=== PATIENT | male | born 1945 | race Caucasian/White ===

== ENCOUNTER 2017-10-01 14:09 | Observation (INO) | payer OTHER, BC, MEDICARE ==
--- NOTE | 2017-10-01 14:41 | ED PDOC ---
HPI: Chest Pain Time Seen by Provider: 10/01/17 14:24 Chief Complaint (Nursing): Trauma History Per: Patient History/Exam Limitations: no limitations Onset/Duration Of Symptoms: Hrs (2), Sudden Onset Current Symptoms Are (Timing): Still Present Severity: Mild Front/Back of Body, Lg (Color): 1 - sharp pain worse with deep breath and palpation Quality: Sharp Associated Symptoms: denies: Nausea, Dyspnea, Diaphoresis, Syncope Modifying Factors: None Exacerbating Factors: Movement, Deep Breathing Alleviating Factors: None Additional History Per: Patient Additional Complaint(s): pt. into ER via EMS c/o lt. sided chest pain and lt. arm s/p falling off a 5 ft ladder. states he fell onto a chair. denies any LOC. no neck pain no sob no n/t/ w. distant cabg h/o Past Medical History Reviewed: Historical Data, Nursing Documentation, Vital Signs Vital Signs: Last Vital Signs Temp 97.8 F 10/01/17 14:15 Pulse 89 10/01/17 14:15 Resp 20 10/01/17 14:15 BP 162/104 H 10/01/17 14:15 Pulse Ox 96 10/01/17 14:15 - Family History Family History: States: Unknown Family Hx - Living Arrangements Living Arrangements: With Family - Social History Current smoker - smoking cessation education provided: No - Allergies Allergies/Adverse Reactions: Allergies Allergy/AdvReac Type Severity Reaction Status Date / Time No Known Allergies Allergy Verified 10/01/17 14:15 NEREYDA Risk Score for UA/NSTEMI - NEREYDA Risk Score Age > 64: YES Known CAD (Stenosis greater than 50%): YES Aspirin use in past 7 days: YES Severe Angina: NO EKG ST changes greater than 0.5mm: NO Positive Cardiac Marker: NO NEREYDA Score: 3 Risk %: 13% Review of Systems ROS Statement: Except As Marked, All Systems Reviewed And Found Negative Constitutional: Negative for: Fever, Chills Cardiovascular: Positive for: Chest Pain. Negative for: Palpitations Respiratory: Negative for: Cough, Shortness of Breath Gastrointestinal: Negative for: Nausea, Vomiting, Abdominal Pain Musculoskeletal: Negative for: Neck Pain Neurological: Negative for: Weakness, Numbness Physical Exam - Reviewed Nursing Documentation Reviewed: Yes Vital Signs Reviewed: Yes - Physical Exam Head Exam: Positive for: NORMAL INSPECTION Eye Exam: Positive for: Normal appearance, EOMI, PERRL ENT: Positive for: Pharynx Is (clear,mmm). Negative for: Pharyngeal Erythema, Tonsillar Exudate, Tonsillar Swelling Neck: Positive for: Normal, Painless ROM, Supple. Negative for: Decreased ROM, Limited ROM, Trachea Midline, Pain On Movement Of Neck (no midline tenderness) Cardiovascular/Chest: Positive for: Regular Rate, Rhythm. Negative for: Chest Non Tender (left anterior tenderness completely reporduces the complaints), Edema, Gallop, Murmur, Bradycardia, Tachycardia Respiratory: Positive for: Normal Breath Sounds. Negative for: Decreased Breath Sounds, Accessory Muscle Use, Crackles, Rales, Rhonchi, Stridor, Wheezing , Respiratory Distress Pulses-Radial (L): 2+ Pulses-Radial (R): 2+ Gastrointestinal/Abdominal: Positive for: Normal Exam, Bowel Sounds, Soft. Negative for: Tenderness Back: Positive for: Normal Inspection. Negative for: L CVA Tenderness, R CVA Tenderness, Vertebral Tenderness Extremity: Positive for: Normal ROM. Negative for: Tenderness, Pedal Edema, Calf Tenderness, Deformity, Swelling Neurologic/Psych: Positive for: Alert, senior executive assistant II-XII, Oriented, Mood/Affect (calm) . Negative for: Motor/Sensory Deficits, Facial Droop - ECG ECG: Positive for: Interpreted By Me ECG Rhythm: Positive for: Normal QRS, Normal ST Segment, Sinus Rhythm (88) Interpretation Of Abn EKG: no prev ecg signs of lvh, reviewed with Dr salcido no evidence of ischemia O2 Sat by Pulse Oximetry: 96 Pulse Ox Interpretation: Normal Disposition - Disposition
[2017-10-01 15:10] LABS: ALB/GLOB RATIO 1.1 (1.0-2.1); ALBUMIN 3.5 g/dL (3.5-5.0); ALT/SGPT 30 U/L (21-72); AST/SGOT 22 U/L (17-59); BLOOD UREA NITROGEN 25 mg/dl (9-20); CALCIUM 8.9 mg/dL (8.4-10.2); GFR AFRICAN-AMERICAN > 60; GFR NON-AFRICAN AMERICAN 60; LIPASE 94 U/L (23-300)
[2017-10-01 15:12] LABS: PARTIAL THROMBOPLASTIN TIME 29.1 Seconds (25.6-37.1); PROTHROMBIN TIME 10.8 Seconds (9.8-13.1)
--- NOTE | 2017-10-01 15:12 | RAD ---
PROCEDURE: CHEST RADIOGRAPH, 1 VIEW HISTORY: Chest pain COMPARISON: None available. FINDINGS: LUNGS: The lungs are well inflated and clear. PLEURA: No pneumothorax or pleural fluid seen. CARDIOVASCULAR: There is mild cardiomegaly. Status post CABG. OSSEOUS STRUCTURES: No significant abnormalities. VISUALIZED UPPER ABDOMEN: Normal. OTHER FINDINGS: None. IMPRESSION: No active pulmonary disease.
[2017-10-01 15:18] LABS: BASO # 0.1 K/uL (0.0-0.2); BASO % 1.1 % (0.0-2.0); EOS # 0.4 K/uL (0.0-0.7); EOS % 5.6 % (0.0-4.0); HEMOGLOBIN 14.7 g/dL (12.0-18.0); LYMPH # 2.3 K/uL (1.0-4.3); LYMPH % 36.3 % (20.0-40.0); MEAN CELL VOLUME 86.2 fl (80.0-94.0); MEAN CORPUSCULAR HEMOGLOBIN 28.7 pg (27.0-31.0); MEAN CORPUSCULAR HGB CONC 33.3 g/dL (33.0-37.0); MEAN PLATELET VOLUME 10.6 fl (7.2-11.7); MONO # 0.3 K/uL (0.0-0.8); MONO % 5.4 % (0.0-10.0); NEUT # 3.3 K/uL (1.8-7.0); NEUT % 51.6 % (50.0-75.0); NRBC % 0.1 % (0.0-0.0); RBC 5.12 Mil/uL (4.40-5.90); RED CELL DISTRIBUTION WIDTH 14.1 % (11.5-14.5); WHITE BLOOD COUNT 6.5 K/uL (4.8-10.8)
[2017-10-01 15:22] LABS: B-TYPE NATRIURETIC PEPTIDE 112 pg/ml (0-900)
[2017-10-01] MEDS ORDERED: Sodium Chloride 0.9% 100 ML ONE (16:33)
[2017-10-01] MEDS ORDERED: Iohexol 300 100 ML IJ ONE (16:33)
--- NOTE | 2017-10-01 17:02 | ED PDOC ---
- Laboratory Results Result Diagrams: 10/01/17 14:55 10/01/17 14:55 Interpretation Of Abn Labs: 25 bun, 243 sugar - ECG ECG: Positive for: Interpreted By Me, Viewed By Me ECG Rhythm: Positive for: Nonspecific Changes O2 Sat by Pulse Oximetry: 96 Pulse Ox Interpretation: Normal - CT Scan/US ct Other Rad Studies (CT/US): Read By Radiologist Other Rad Interpretation: no acute - Progress ED Course And Treament: 1700: Took over care. FU CT chest for trauma. No head or neck injury. 1856: Pt. still with pain. Will consider admit as he has multiple risk factors and abnormal EKG. Spoke with Dr. Saldivar who will admit tele obs. No asa as pt. took plavix in the morning. Disposition - Clinical Impression Clinical Impression: Trauma of chest, Chest pain, Dehydration, Hyperglycemia - POA Present On Arrival: Falls Or Trauma - Disposition Disposition: Hospitalized as Observation Patient Disposition Time: 18:58 Condition: FAIR
--- NOTE | 2017-10-01 17:41 | CT ---
PROCEDURE: CT Chest with contrast HISTORY: cp with trauma COMPARISON: None. TECHNIQUE: Contiguous axial images were obtained through the chest with intravenous contrast enhancement. Sagittal and coronal reconstructions were performed. IV contrast: 90 cc Omnipaque 300 Radiation dose (DLP): 617.03 mGy-cm. This CT exam was performed using one or more of the following dose reduction techniques: Automated exposure control, adjustment of the mA and/or kV according to patient size, and/or use of iterative reconstruction technique. FINDINGS: LUNGS: Clear lungs. Visualized airway clear. MEDIASTINUM: Unremarkable thoracic aorta. No aneurysm or dissection. Normal sized heart. Main pulmonary artery unremarkable. No vascular congestion. No lymphadenopathy. PLEURA: No pleural fluid. No pneumothorax. BONES: No fracture. No destructive lesion. UPPER ABDOMEN: Significant only for mid left renal cortical cyst, 2.6 cm. OTHER FINDINGS: None. IMPRESSION: No evidence of hemothorax or pneumothorax. No evidence of rib fracture. Incidental left renal cyst.
[2017-10-01] MEDS ORDERED: Morphine 4 MG/ML VIAL IV ONE (17:59)
[2017-10-01] MEDS ORDERED: Morphine 4 MG/ML VIAL ONE (19:23)
[2017-10-01] MEDS ORDERED: Nitroglycerin 2% Ointment Foilpak UD TOP STA (22:51)
[2017-10-02] MEDS ORDERED: Morphine 4 MG/ML VIAL IVP STA (02:14)
[2017-10-02] MEDS ORDERED: Labetalol 5 mg/ml Inj 20ML IVP STA (02:14)
[2017-10-02 05:38] LABS: BASO % 0.3 % (0.0-2.0); EOS # 0.4 K/uL (0.0-0.7); EOS % 8.2 % (0.0-4.0); HEMOGLOBIN 14.5 g/dL (12.0-18.0); LYMPH # 2.3 K/uL (1.0-4.3); LYMPH % 45.5 % (20.0-40.0); MEAN CELL VOLUME 86.6 fl (80.0-94.0); MEAN CORPUSCULAR HEMOGLOBIN 28.5 pg (27.0-31.0); MEAN PLATELET VOLUME 10.4 fl (7.2-11.7); MONO # 0.3 K/uL (0.0-0.8); MONO % 6.6 % (0.0-10.0); NEUT % 39.4 % (50.0-75.0); NRBC % 0.1 % (0.0-0.0); RBC 5.09 Mil/uL (4.40-5.90); RED CELL DISTRIBUTION WIDTH 14.3 % (11.5-14.5); WHITE BLOOD COUNT 5.1 K/uL (4.8-10.8)
[2017-10-02 05:52] LABS: ALBUMIN 3.2 g/dL (3.5-5.0); ALT/SGPT 31 U/L (21-72); AST/SGOT 18 U/L (17-59); BLOOD UREA NITROGEN 17 mg/dl (9-20); CALCIUM 8.8 mg/dL (8.4-10.2); GFR AFRICAN-AMERICAN > 60; GFR NON-AFRICAN AMERICAN > 60
[2017-10-02] MEDS ORDERED: Influenza Vaccine 18yr & older 0.5 ML/45 MCG SYR IM ONE (08:37)
[2017-10-02] MEDS ORDERED: Nitroglycerin 2% Ointment Foilpak UD TOP STA (09:47)
--- NOTE | 2017-10-02 11:33 | CARD ---
APPROVED REPORT EKG Measurement Heart [id number] OH [id number] <Conclusion> Normal sinus rhythm Septal infarct, age undetermined ST & T wave abnormality, consider lateral ischemia Abnormal ECG
[2017-10-02] MEDS: Insulin Regular 100 units/ml SC SCH ×2 (11:49→17:16)
--- NOTE | 2017-10-02 13:24 | CP.PCM.HP ---
History of Present Illness - History of Present Illness History of Present Illness: CC: Chest pain/Fall. 72 y/o M, PMHx. HTN. CABG, brought by EMS to [facility] to be evaluated for Left upper Chest pain, intermittent, sharp, moderate to severe intensity 7-8:10 , sudden onset after Pt fell onto a chair from a 5th ladder steps, 2 hrs [employer]. Symptom associated to L arm pain, with no relief. Worsening symptoms: Increased pain with breathing. High BP 162/104 while in the ER. Aggravated factor: Movements/ change positions. Pt denied: Fever, chills, palpitations, dizziness, LOC, numbness, SOB, cough, n /v/d, abdominal pain, sick contact, recent travel out of [facility]. CXR: No active pulmonary disease. hest CT: No hemothorax, no pneumothorax, no ribs Fx. EKG: Normal sinus rhythm, septal infarct age undetermined, ST & T wave abnormality, consider lateral ischemia. Present on Admission - Present on Admission Any Indicators Present on Admission: No Review of Systems - EENT Eyes: Other (negative) Ears: Other (negative) Nose/Mouth/Throat: Other (negative) - Cardiovascular Cardiovascular: Chest Pain, Chest Pain with Activity, Pain Radiating to Arm/Neck /Jaw - Respiratory Respiratory: Other (negative) - Gastrointestinal Gastrointestinal: Other (negative) - Genitourinary Genitourinary: Other (negative) - Musculoskeletal Musculoskeletal: Other (L arm pain) - Integumentary Integumentary: Other (negative) - Psychiatric Psychiatric: Other (negative) - Endocrine Endocrine: Other (negative) - Hematologic/Lymphatic Hematologic: Other (negative) Past Patient History - Past Medical History & Family History Past Medical History?: Yes Pertinent Family History: Unknown - Past Social History Smoking Status: Never Smoked Alcohol: None Drugs: Denies Home Situation {Lives}: With Family - CARDIAC Hx Cardiac Disorders: Yes Hx Hypertension: Yes - PULMONARY Hx Respiratory Disorders: No - NEUROLOGICAL Hx Neurological Disorder: No - HEENT Hx HEENT Problems: Yes Hx Glaucoma: Yes - RENAL Hx Chronic Kidney Disease: No - ENDOCRINE/METABOLIC Hx Endocrine Disorders: Yes Hx Diabetes Mellitus Type 2: Yes - HEMATOLOGICAL/ONCOLOGICAL Hx Blood Disorders: No - INTEGUMENTARY Hx Dermatological Problems: No - MUSCULOSKELETAL/RHEUMATOLOGICAL Hx Musculoskeletal Disorders: Yes Hx Falls: Yes Hx Gout: Yes - GASTROINTESTINAL Hx Gastrointestinal Disorders: No - GENITOURINARY/GYNECOLOGICAL Hx Genitourinary Disorders: No - PSYCHIATRIC Hx Psychophysiologic Disorder: No - SURGICAL HISTORY Hx Surgeries: Yes Hx Coronary Artery Bypass Graft: Yes Hx Coronary Stent: Yes - ANESTHESIA Hx Anesthesia: Yes Hx Anesthesia Reactions: No Hx Malignant Hyperthermia: No Has any member of the family had a problem w/ anesthesia?: No Meds Allergies/Adverse Reactions: Allergies Allergy/AdvReac Type Severity Reaction Status Date / Time No Known Allergies Allergy Verified 10/01/17 14:15 Physical Exam - Constitutional Appears: Chronically Ill - Head Exam Head Exam: NORMAL INSPECTION - Eye Exam Eye Exam: PERRL - ENT Exam ENT Exam: Normal Exam - Neck Exam Neck exam: Positive for: Normal Inspection - Respiratory Exam Respiratory Exam: NORMAL BREATHING PATTERN - Cardiovascular Exam Cardiovascular Exam: REGULAR RHYTHM, Systolic Murmur - GI/Abdominal Exam GI & Abdominal Exam: Normal Bowel Sounds, Soft - Extremities Exam Extremities exam: Positive for: normal inspection - Back Exam Back exam: NORMAL INSPECTION - Neurological Exam Neurological exam: Alert, CN II-XII Intact, Oriented x3 Additional comments: no focal motor/sensory deficit - Psychiatric Exam Psychiatric exam: Normal Mood - Skin Skin Exam: Warm Results - Vital Signs Recent Vital Signs: Last Vital Signs Temp 98.3 F 10/02/17 12:00 Pulse 85 10/02/17 12:00 Resp 20 10/02/17 12:00 BP 116/78 10/02/17 12:00 Pulse Ox 98 10/02/17 12:00 reviewed Rox - Labs Result Diagrams: 10/02/17 05:00 10/03/17 11:27 Labs: Laboratory Results - last 24 hr 10/01/17 10/01/17 10/01/17 14:55 14:55 14:55 WBC 6.5 RBC 5.12 Hgb 14.7 Hct 44.1 MCV 86.2 MCH 28.7 MCHC 33.3 RDW 14.1 Plt Count 153 MPV 10.6 Neut % (Auto) 51.6 Lymph % (Auto) 36.3 [place] % (Auto) 5.4 Eos % (Auto) 5.6 H Baso % (Auto) 1.1 Neut # (Auto) 3.3 Lymph # (Auto) 2.3 [place] # (Auto) 0.3 Eos # (Auto) 0.4 Baso # (Auto) 0.1 PT 10.8 INR 1.0 APTT 29.1 Sodium 136 Potassium 3.8 Chloride 98 Carbon Dioxide 26 Anion Gap 16 BUN 25 H Creatinine 1.2 Est GFR ( Amer) > 60 Est GFR (Non-Af Amer) 60 POC Glucose (mg/dL) Random Glucose 243 H Calcium 8.9 Magnesium 1.4 L Total Bilirubin 0.7 AST 22 ALT 30 Alkaline Phosphatase 71 Troponin I 0.0210 NT-Pro-B Natriuret Pep 112 Total Protein 6.7 Albumin 3.5 Globulin 3.2 Albumin/Globulin Ratio 1.1 Lipase 94 10/01/17 10/02/17 10/02/17 21:14 05:00 05:00 WBC 5.1 RBC 5.09 Hgb 14.5 Hct 44.1 MCV 86.6 MCH 28.5 MCHC 33.0 RDW 14.3 Plt Count 144 MPV 10.4 Neut % (Auto) 39.4 L Lymph % (Auto) 45.5 H [place] % (Auto) 6.6 Eos % (Auto) 8.2 H Baso % (Auto) 0.3 Neut # (Auto) 2.0 Lymph # (Auto) 2.3 [place] # (Auto) 0.3 Eos # (Auto) 0.4 Baso # (Auto) 0.0 PT INR APTT Sodium 140 Potassium 3.4 L Chloride 102 Carbon Dioxide 27 Anion Gap 14 BUN 17 Creatinine 0.9 Est GFR ( Amer) > 60 Est GFR (Non-Af Amer) > 60 POC Glucose (mg/dL) Random Glucose 143 H Calcium 8.8 Magnesium Total Bilirubin 0.9 AST 18 ALT 31 Alkaline Phosphatase 67 Troponin I 0.0210 NT-Pro-B Natriuret Pep Total Protein 6.3 Albumin 3.2 L Globulin 3.1 Albumin/Globulin Ratio 1.0 Lipase 10/02/17 10/02/17 05:42 11:35 WBC RBC Hgb Hct MCV MCH MCHC RDW Plt Count MPV Neut % (Auto) Lymph % (Auto) [place] % (Auto) Eos % (Auto) Baso % (Auto) Neut # (Auto) Lymph # (Auto) [place] # (Auto) Eos # (Auto) Baso # (Auto) PT INR APTT Sodium Potassium Chloride Carbon Dioxide Anion Gap BUN Creatinine Est GFR ( Amer) Est GFR (Non-Af Amer) POC Glucose (mg/dL) 130 H 314 H Random Glucose Calcium Magnesium Total Bilirubin AST ALT Alkaline Phosphatase Troponin I NT-Pro-B Natriuret Pep Total Protein Albumin Globulin Albumin/Globulin Ratio Lipase reviewed J.P. - EKG Data EKG comments: reviewed J.P. - Imaging and Cardiology Chest x-ray Status: Report reviewed by me (Rox) CT scan - chest Status: Report reviewed by me (Rox) Assessment & Plan (1) Chest pain Status: Acute Priority: High (2) Trauma of chest Status: Acute (3) Dehydration Status: Acute Priority: High (4) Hyperglycemia Status: Acute Priority: High (5) HTN (hypertension) Status: Acute Priority: High (6) CAD (coronary artery disease) Status: Chronic Priority: High (7) Hx of CABG Status: Chronic Priority: High - Assessment and Plan (Free Text) Plan: Continue color television console monitor, Losartan , Coreg, Lasix, Plavix , Humulin R , Levemir , Cardilogy consult. - Date & Time Date: 10/02/17 Time: 10:00
--- NOTE | 2017-10-02 19:04 | CP.PCM.CON ---
History of Present Illness - History of Present Illness History of Present Illness: PT PRESENTS WITH LEFT SIDED CP X 1 DAY. PAIN INCREASES WITH MOVEMENT OF TORSO. NO ASSOCIATED LEAHC, ORTHOPNEA, PND, VINEET. PT FELL OFF LADDER ONTO LEFT SIDE. PAIN BEGAN THEREAFTER AND HIS BP INCREASED A RESULT. PTS BP WAS ELEVATED TODAY. HOME MEDS RESTARTED AND BP IMPROVED. TROP X 2 NEG. NO ISCHEMIA ON EKG. NOTE PT HAS HX OF PCI AND CABG X 3 . Past Patient History - Past Medical History & Family History Past Medical History?: Yes - Past Social History Smoking Status: Never Smoked Alcohol: None Drugs: Denies Home Situation {Lives}: With Family - CARDIAC Hx Cardiac Disorders: Yes Hx Hypertension: Yes - PULMONARY Hx Respiratory Disorders: No - NEUROLOGICAL Hx Neurological Disorder: No - HEENT Hx HEENT Problems: Yes Hx Glaucoma: Yes - RENAL Hx Chronic Kidney Disease: No Hx Dialysis: No Hx Kidney Stones: No Hx Neurogenic Bladder: No Hx Pyelonephritis: No Hx Renal (Kidney) Cancer: No Hx Renal Failure: No - ENDOCRINE/METABOLIC Hx Endocrine Disorders: Yes Hx Adrenal Cancer: No Hx Diabetes Insipidus: No Hx Diabetes Mellitus Type 1: No Hx Diabetes Mellitus Type 2: Yes Hx Hyperthyroidism: No Hx Hypothyroidism: No Hx Systemic Lupus Erythematosus: No - HEMATOLOGICAL/ONCOLOGICAL Hx Blood Disorders: No Hx AIDS: No Hx Anemia: No Hx Blood Transfusions: No Hx Blood Transfusion Reaction: No Hx Bruising: No Hx Cancer: No Hx Chemotherapy: No Hx Cirrhosis: No Hx Gum Bleeding: No Hx Hemophilia: No Hx Hepatitis A: No Hx Hepatitis B: No Hx Hepatitis C: No Hx Human Immunodeficiency Virus (HIV): No Hx Leukemia: No Hx Metastesis: No Hx Shingles: No Hx Sickle Cell Disease: No Hx Unexplained Bleeding: No Hx von Willebrand's Disease: No - INTEGUMENTARY Hx Dermatological Problems: No Hx Basil Cell: No Hx Caruso: No Hx Cellulitis: No Hx Eczema: No Hx Melanoma: No Hx Psoriasis: No Hx Squamous Cell: No - MUSCULOSKELETAL/RHEUMATOLOGICAL Hx Musculoskeletal Disorders: Yes Hx Arthritis: No Hx Back Pain: No Hx Degenerative Joint Disease: No Hx Falls: Yes Hx Fractures: No Hx Gout: Yes Hx Herniated Disk: No Hx Myasthenia Gravis: No Hx Osteoarthritis: No Hx Osteomyelitis: No Hx Osteoporosis: No Hx Rhabdomyolysis: No Hx Rheumatoid Arthritis: No Hx Spinal Stenosis: No Hx Unsteady Gait: No - GASTROINTESTINAL Hx Gastrointestinal Disorders: No Hx Bowel Surgery: No Hx Clostridium Difficile: No Hx Colitis: No Hx Colostomy: No Hx Constipation: No Hx Crohn's Disease: No Hx Diarrhea: No Hx Diverticulitis: No Hx Esophageal Varices: No Hx Fatty Liver Disease: No Hx Gall Bladder Disease: No Hx Gastritis: No Hx Gastroesophageal Reflux: No Hx Hemorrhoids: No Hx Ileostomy: No Hx Irritable Bowel: No Hx Liver Failure: No Hx Nausea: No Hx Pancreatitis: No HX Swallowing Problems: No Hx Ulcer: No Hx Vomiting: No - GENITOURINARY/GYNECOLOGICAL Hx Genitourinary Disorders: No Hx Bladder Cancer: No Hx Bladder Stone: No Hx Hematuria: No Hx Incontinence: No Hx Prostate Cancer: No Hx Prostate Problems: No Hx Reproductive Disorders: No Hx Sexually Transmitted Disorders: No Hx Urinary Tract Infection: No - PSYCHIATRIC Hx Psychophysiologic Disorder: No Hx Anxiety: No Hx Bipolar Disorder: No Hx Depression: No Hx Emotional Abuse: No Hx Hallucinations: No Hx Panic Symptoms: No Hx Paranoia: No Hx Post Traumatic Stress Disorder: No Hx Psychosis: No Hx Physical Abuse: No Hx Schizophrenia: No Hx Sexual Abuse: No Hx Substance Use: No - SURGICAL HISTORY Hx Surgeries: Yes Hx Abdominal Aortic Aneurysm Repair: No Hx Amputation: No Hx Angiogram: No Hx Angioplasty: No Hx Appendectomy: No Hx Arteriovenous Shunt: No Hx Arthroscopy: No Hx Bile Duct Stent: No Hx Breast Biopsy: No Hx Cataract Extraction: No Hx Cardiac Catheterization: No Hx Carotid Endarterectomy: No Hx Section: No Hx Cholecystectomy: No Hx Coronary Artery Bypass Graft: Yes Hx Coronary Stent: Yes Hx Dilation and Curettage: No Hx Eye Surgery: No Hx Femoral-Popliteal Bypass Graft: No Hx Gastric Bypass Surgery: No Hx Herniorrhaphy: No Hx Hysterectomy: No Hx Joint Replacement: No Hx Kidney Transplant: No Hx Liver Transplant: No Hx Mastectomy: No Hx Musculoskeletal Surgery: No Hx Open Heart Surgery: No Hx Open Reduction Internal Fixation: No Hx Orthopedic Surgery: No Hx Parathyroidectomy: No Hx Penile Implant: No Hx Pulmonary Surgery: No Hx Splenectomy: No Hx Thyroidectomy: No Hx Tonsillectomy: No Hx Tubal Ligation: No Hx Valve Replacement: No Hx Vascular Surgery: No Hx Vascular Access Device: No - ANESTHESIA Hx Anesthesia: Yes Hx Anesthesia Reactions: No Hx Malignant Hyperthermia: No Has any member of the family had a problem w/ anesthesia?: No Meds Allergies/Adverse Reactions: Allergies Allergy/AdvReac Type Severity Reaction Status Date / Time No Known Allergies Allergy Verified 10/01/17 14:15 - Medications Medications: Current Medications Carvedilol (Coreg) 25 mg PO Q12 COUNT INCLUDES THE [facility] Last Admin: 10/02/17 08:56 Dose: 25 mg Furosemide (Lasix) 40 mg PO DAILY COUNT INCLUDES THE [facility] Last Admin: 10/02/17 08:58 Dose: 40 mg HCTZ/Losartan Potassium (Hyzaar 12.5 Mg-50 Mg) 2 tab PO DAILY COUNT INCLUDES THE [facility] Insulin Human Regular (Humulin R) 0 units SC ACHS COUNT INCLUDES THE [facility] PRN Reason: Protocol Last Admin: 10/02/17 17:16 Dose: 3 units Results - Vital Signs Recent Vital Signs: Last Vital Signs Temp 97.3 F L 10/02/17 16:00 Pulse 83 10/02/17 17:00 Resp 15 10/02/17 16:00 BP 117/71 10/02/17 17:00 Pulse Ox 98 10/02/17 16:00 - Labs Result Diagrams: 10/02/17 05:00 10/02/17 05:00 Labs: Laboratory Results - last 24 hr 10/01/17 10/02/17 10/02/17 21:14 05:00 05:00 WBC 5.1 RBC 5.09 Hgb 14.5 Hct 44.1 MCV 86.6 MCH 28.5 MCHC 33.0 RDW 14.3 Plt Count 144 MPV 10.4 Neut % (Auto) 39.4 L Lymph % (Auto) 45.5 H [place] % (Auto) 6.6 Eos % (Auto) 8.2 H Baso % (Auto) 0.3 Neut # (Auto) 2.0 Lymph # (Auto) 2.3 [place] # (Auto) 0.3 Eos # (Auto) 0.4 Baso # (Auto) 0.0 Sodium 140 Potassium 3.4 L Chloride 102 Carbon Dioxide 27 Anion Gap 14 BUN 17 Creatinine 0.9 Est GFR ( Amer) > 60 Est GFR (Non-Af Amer) > 60 POC Glucose (mg/dL) Random Glucose 143 H Calcium 8.8 Total Bilirubin 0.9 AST 18 ALT 31 Alkaline Phosphatase 67 Troponin I 0.0210 Total Protein 6.3 Albumin 3.2 L Globulin 3.1 Albumin/Globulin Ratio 1.0 10/02/17 10/02/17 10/02/17 05:42 11:35 16:55 WBC RBC Hgb Hct MCV MCH MCHC RDW Plt Count MPV Neut % (Auto) Lymph % (Auto) [place] % (Auto) Eos % (Auto) Baso % (Auto) Neut # (Auto) Lymph # (Auto) [place] # (Auto) Eos # (Auto) Baso # (Auto) Sodium Potassium Chloride Carbon Dioxide Anion Gap BUN Creatinine Est GFR ( Amer) Est GFR (Non-Af Amer) POC Glucose (mg/dL) 130 H 314 H 244 H Random Glucose Calcium Total Bilirubin AST ALT Alkaline Phosphatase Troponin I Total Protein Albumin Globulin Albumin/Globulin Ratio Assessment & Plan (1) Traumatic chest pain Status: Acute (2) CAD (coronary artery disease) Status: Acute (3) Hx of CABG Status: Acute (4) HTN (hypertension) Status: Acute Priority: High - Assessment and Plan (Free Text) Plan: CONTINUE PTS HOME MEDS AND CONTROL PAIN. WILL CHECK ECHO TO EVAL EF AND MURMUR AND EVAL FOR ANY PERICARDIAL DISEASE POST TRAUMA. MONITOR AND REPLEAT LYTES.
[2017-10-02] MEDS: Potassium Chloride 20 mEq/15 ml LIQ UD PO SCH (20:54)
[2017-10-02] MEDS: Oxycodone/Acetaminophen 5/325 mg Tab PO PRN (22:58)
[2017-10-03] MEDS: Insulin Regular 100 units/ml SC SCH ×4 (06:51→21:52)
[2017-10-03] MEDS: Potassium Chloride 20 mEq/15 ml LIQ UD PO SCH (06:59)
[2017-10-03] MEDS: Oxycodone/Acetaminophen 5/325 mg Tab PO PRN (07:53)
[2017-10-03] MEDS: Brimonidine 0.2% 50 DROP/5 ML BOTTLE OU SCH ×2 (08:16→21:08)
[2017-10-03] MEDS: Pravastatin Sodium 20 MG TAB PO SCH (08:16)
[2017-10-03] MEDS ORDERED: Insulin Detemir 100 Units/ml Inj SC SCH (09:00)
[2017-10-03] MEDS ORDERED: HCTZ/Losartan 12.5/50 Tab PO SCH (09:00)
[2017-10-03] MEDS ORDERED: Patient's Own Med (Lovastatin [Lovastatin] 20 mg) PO SCH (09:00)
[2017-10-03 13:09] LABS: BLOOD UREA NITROGEN 19 mg/dl (9-20); GFR AFRICAN-AMERICAN > 60; GFR NON-AFRICAN AMERICAN > 60
--- NOTE | 2017-10-03 17:19 | CP.PCM.PN ---
Subjective - Date & Time of Evaluation Date of Evaluation: 10/03/17 Time of Evaluation: 13:15 - Subjective Subjective: F/U CP CP with movements Objective - Vital Signs/Intake and Output Vital Signs (last 24 hours): Temp Pulse Resp BP Pulse Ox 97.7 F 92 H 16 148/81 99 10/03/17 16:21 10/03/17 16:21 10/03/17 16:21 10/03/17 16:21 10/03/17 16:21 - Medications Medications: Current Medications Aspirin (Ecotrin) 81 mg PO DAILY [facility] Last Admin: 10/03/17 08:13 Dose: 81 mg Brimonidine Tartrate (Alphagan 0.2% Opht) 1 drop OU Q12 [facility] Last Admin: 10/03/17 08:16 Dose: 1 drop Carvedilol (Coreg) 25 mg PO Q12 [facility] Last Admin: 10/03/17 08:12 Dose: 25 mg Clopidogrel Bisulfate (Plavix) 75 mg PO DAILY [facility] Last Admin: 10/03/17 08:15 Dose: 75 mg Furosemide (Lasix) 40 mg PO DAILY [facility] Last Admin: 10/03/17 08:14 Dose: 40 mg Insulin Detemir (Levemir) 30 units SC QAM [facility] Last Admin: 10/03/17 11:20 Dose: 30 units Insulin Human Regular (Humulin R) 0 units SC [facility] PRN Reason: Protocol Last Admin: 10/03/17 17:14 Dose: 2 units Latanoprost (Xalatan Opht) 1 drop OU HS [facility] Losartan Potassium (Cozaar) 100 mg PO DAILY [facility] Last Admin: 10/03/17 08:13 Dose: 100 mg Metformin HCl (Glucophage) 1,000 mg PO BID [facility] Last Admin: 10/03/17 17:15 Dose: 1,000 mg Oxycodone/Acetaminophen (Percocet 5/325 Mg Tab) 1 tab PO Q4 PRN PRN Reason: Pain, moderate (4-7) Stop: 10/05/17 22:16 Last Admin: 10/03/17 07:53 Dose: 1 tab Pravastatin Sodium (Pravachol) 20 mg PO DAILY [facility] Last Admin: 10/03/17 08:16 Dose: 20 mg Rivastigmine (Exelon 9.5 Mg/24 Hr Patch) 1 patch TD DAILY [facility] Last Admin: 10/03/17 08:13 Dose: 1 patch Sitagliptin Phosphate (Januvia) 100 mg PO DAILY [facility] Last Admin: 10/03/17 08:14 Dose: 100 mg - Labs Labs: 10/02/17 05:00 10/03/17 11:27 PT 10.8 Seconds (9.8-13.1) 10/01/17 14:55 INR 1.0 (0.9-1.2) 10/01/17 14:55 APTT 29.1 Seconds (25.6-37.1) 10/01/17 14:55 - Constitutional Appears: Chronically Ill - Head Exam Head Exam: NORMAL INSPECTION - Eye Exam Eye Exam: PERRL - ENT Exam ENT Exam: Normal Exam - Neck Exam Neck Exam: Normal Inspection - Respiratory Exam Respiratory Exam: NORMAL BREATHING PATTERN - Cardiovascular Exam Cardiovascular Exam: REGULAR RHYTHM, Murmur - GI/Abdominal Exam GI & Abdominal Exam: Soft, Normal Bowel Sounds - Extremities Exam Extremities Exam: Normal Inspection - Back Exam Back Exam: NORMAL INSPECTION - Neurological Exam Neurological Exam: Alert, CN II-XII Intact, Oriented x3 - Psychiatric Exam Psychiatric exam: Normal Mood - Skin Skin Exam: Warm Assessment and Plan (1) Chest pain Status: Acute (2) Trauma of chest Status: Acute (3) Dehydration Status: Resolved (4) Hyperglycemia Status: Resolved (5) HTN (hypertension) Status: Acute - Assessment and Plan (Free Text) Plan: continue current treatment , f/u ECHO , Cardiology consult appreciated.
--- NOTE | 2017-10-03 18:23 | CP.PCM.PN ---
Subjective - Date & Time of Evaluation Date of Evaluation: 10/03/17 Time of Evaluation: 18:21 - Subjective Subjective: PT WITH CONTINUED MSK CP. NO LEACH ORTHOPNEA OR EDEMA. ECHO SHOWS EF 45% WITH SEPTAL WALL ABN C/W POST OP. MILD INF WALL HYPO. MILD AI, MR, G1 Objective - Vital Signs/Intake and Output Vital Signs (last 24 hours): Temp Pulse Resp BP Pulse Ox 97.7 F 92 H 16 148/81 99 10/03/17 16:21 10/03/17 16:21 10/03/17 16:21 10/03/17 16:21 10/03/17 16:21 - Medications Medications: Current Medications Aspirin (Ecotrin) 81 mg PO DAILY [facility] Last Admin: 10/03/17 08:13 Dose: 81 mg Brimonidine Tartrate (Alphagan 0.2% Opht) 1 drop OU Q12 [facility] Last Admin: 10/03/17 08:16 Dose: 1 drop Carvedilol (Coreg) 25 mg PO Q12 [facility] Last Admin: 10/03/17 08:12 Dose: 25 mg Clopidogrel Bisulfate (Plavix) 75 mg PO DAILY [facility] Last Admin: 10/03/17 08:15 Dose: 75 mg Furosemide (Lasix) 40 mg PO DAILY [facility] Last Admin: 10/03/17 08:14 Dose: 40 mg Insulin Detemir (Levemir) 30 units SC QAM [facility] Last Admin: 10/03/17 11:20 Dose: 30 units Insulin Human Regular (Humulin R) 0 units SC ACHS [facility] PRN Reason: Protocol Last Admin: 10/03/17 17:14 Dose: 2 units Latanoprost (Xalatan Opht) 1 drop OU HS [facility] Losartan Potassium (Cozaar) 100 mg PO DAILY [facility] Last Admin: 10/03/17 08:13 Dose: 100 mg Metformin HCl (Glucophage) 1,000 mg PO BID [facility] Last Admin: 10/03/17 17:15 Dose: 1,000 mg Oxycodone/Acetaminophen (Percocet 5/325 Mg Tab) 1 tab PO Q4 PRN PRN Reason: Pain, moderate (4-7) Stop: 10/05/17 22:16 Last Admin: 10/03/17 07:53 Dose: 1 tab Pravastatin Sodium (Pravachol) 20 mg PO DAILY [facility] Last Admin: 10/03/17 08:16 Dose: 20 mg Rivastigmine (Exelon 9.5 Mg/24 Hr Patch) 1 patch TD DAILY [facility] Last Admin: 10/03/17 08:13 Dose: 1 patch Sitagliptin Phosphate (Januvia) 100 mg PO DAILY [facility] Last Admin: 10/03/17 08:14 Dose: 100 mg - Labs Labs: 10/02/17 05:00 10/03/17 11:27 PT 10.8 Seconds (9.8-13.1) 10/01/17 14:55 INR 1.0 (0.9-1.2) 10/01/17 14:55 APTT 29.1 Seconds (25.6-37.1) 10/01/17 14:55 - Constitutional Appears: Well - Head Exam Head Exam: ATRAUMATIC, NORMAL INSPECTION, NORMOCEPHALIC - Eye Exam Eye Exam: EOMI, Normal appearance, PERRL. absent: Conjunctival injection, Nystagmus, Periorbital swelling, Periorbital tenderness, Scleral icterus Pupil Exam: NORMAL ACCOMODATION, PERRL - ENT Exam ENT Exam: Mucous Membranes Moist, Normal Exam. absent: Mucous Membranes Dry, Normal External Ear Exam, Normal Oropharynx, TM's Normal Bilaterally - Neck Exam Neck Exam: Full ROM, Normal Inspection. absent: Lymphadenopathy, Meningismus, Tenderness, Thyromegaly - Respiratory Exam Respiratory Exam: Clear to Ausculation Bilateral, NORMAL BREATHING PATTERN. absent: Accessory Muscle Use, Chest Wall Tenderness, Decreased Breath Sounds, Prolonged Expiratory Phase, Rales, Rhonchi, Wheezes, Respiratory Distress, Stridor - Cardiovascular Exam Cardiovascular Exam: REGULAR RHYTHM, +S1, +S2, Murmur. absent: Bradycardia, Tachycardia, Clicks, Diastolic murmur, Gallop, Irregular Rhythm, JVD, RRR, Rubs , +S4 - GI/Abdominal Exam GI & Abdominal Exam: Soft, Normal Bowel Sounds. absent: Bruit, Distended, Firm , Guarding, Rigid, Tenderness, Diminished Bowel Sounds, Hernia, Hyperactive Bowel Sounds, Hypoactive Bowel Sounds, Organomegaly, Pulsatile Mass, Rebound, Mass - Extremities Exam Extremities Exam: Full ROM, Normal Capillary Refill, Normal Inspection. absent : Calf Tenderness, Joint Swelling, Pedal Edema, Tenderness - Back Exam Back Exam: NORMAL INSPECTION. absent: CVA tenderness (L), CVA tenderness (R), Full ROM, muscle spasm, paraspinal tenderness, rash noted, tenderness, vertebral tenderness - Neurological Exam Neurological Exam: Alert, Awake, CN II-XII Intact, Normal Gait, Oriented x3. absent: Abnormal Gait, Altered, Motor Sensory Deficit, Reflexes Normal - Psychiatric Exam Psychiatric exam: Normal Affect, Normal Mood. absent: Agitated, Anxious, Depressed, Flat Affect, Homicidal Ideation, Manic, Suicidal Ideation - Skin Skin Exam: Dry, Intact, Normal Color, Warm. absent: Abrasion, Cyanosis, Diaphoretic, Erythema, Mottled, Pallor, Pallor, Petechiae, Rash, Urticaria, Vesicles Assessment and Plan (1) Traumatic chest pain Status: Acute (2) CAD (coronary artery disease) Status: Acute (3) Hx of CABG Status: Acute (4) HTN (hypertension) Status: Acute - Assessment and Plan (Free Text) Plan: BP MILDLY ELEVATED DUE TO PAIN, WOULD CONTROL PAIN OPPOSED TO INCREASING BP MEDS STABLE FROM CARD PERSPECTIVE FOR D/C TO HOME. MOTRIN FOR MSK PAIN.
[2017-10-03] MEDS ORDERED: Latanoprost 0.005% Opht SOUTION OU SCH (22:00)
[2017-10-04] MEDS: Insulin Regular 100 units/ml SC SCH (06:50)
[2017-10-04 08:25] VITALS: RESP 20; O2SAT 99
[2017-10-04] MEDS: Brimonidine 0.2% 50 DROP/5 ML BOTTLE OU SCH (09:21)
[2017-10-04] MEDS: Pravastatin Sodium 20 MG TAB PO SCH (09:25)
[2017-10-04 12:14] VITALS: BP 103/68; PULSE 79; TEMP 97.5
--- NOTE | 2017-10-04 12:59 | CARD ---
APPROVED REPORT EXAM: Two-dimensional and M-mode echocardiogram with Doppler and color Doppler. Other Information Quality : GoodRhythm : NSR INDICATION Chest Pain 2D DIMENSIONS IVSd1.28 (0.7-1.1cm)LVDd5.31 (3.9-5.9cm) LVOT Diameter2.28 (1.8-2.4cm)PWd1.22 (0.7-1.1cm) IVSs2.24 (0.8-1.2cm)LVDs3.56 (2.5-4.0cm) FS (%) 32.9 %PWs1.65 (0.8-1.2cm) M-Mode DIMENSIONS Left Atrium (MM)4.09 (2.5-4.0cm)IVSd1.26 (0.7-1.1cm) Aortic Root4.06 (2.2-3.7cm)LVDd5.47 (4.0-5.6cm) Aortic Cusp Exc.2.00 (1.5-2.0cm)PWd1.41 (0.7-1.1cm) IVSs1.97 cmFS (%) 30 % LVDs3.85 (2.0-3.8cm)PWs1.56 cm Mitral Valve MV E Xhatgkfe28.1cm/sMV DECEL [id number] A Ekvdwhlc57.5cm/s MV LZE52vvX/A ratio0.7MVA (PHT)3.52cm2 TDI Lateral E' Peak V8.07cm/sMedial E' Peak V4.97cm/sE/Lateral E'7.6 E/Medial E'12.3 Pulmonary Valve PV Peak Dcfurmnl49.6cm/s Tricuspid Valve TR Peak Ibmateos750lx/sRAP [id number] Peak Gr.19mmHg [id number] LEFT VENTRICLE The left ventricle is normal size. There is mild concentric left ventricular hypertrophy. The left ventricular function is low normal. The left ventricular ejection fraction is 50% There is normal LV segmental wall motion. Transmitral Doppler flow pattern is Grade I-abnormal relaxation pattern. No left ventricle thrombus noted on this study. There is no ventricular septal defect visualized. There is no left ventricular aneurysm. There is no mass noted in the left ventricle. RIGHT VENTRICLE The right ventricle is normal size. There is normal right ventricular wall thickness. The right ventricular systolic function is normal. ATRIA The left atrium size is normal. The right atrium size is normal. The interatrial septum is intact with no evidence for an atrial septal defect. AORTIC VALVE The aortic valve is normal in structure. No aortic regurgitation is present. There is no aortic valvular stenosis. There is no aortic valvular vegetation. MITRAL VALVE The mitral valve is normal in structure. There is no evidence of mitral valve prolapse. There is no mitral valve stenosis. There is no mitral valve regurgitation noted. TRICUSPID VALVE The tricuspid valve is normal in structure. There is no tricuspid valve regurgitation noted. There is no tricuspid valve prolapse or vegetation. There is no tricuspid valve stenosis. PULMONIC VALVE The pulmonary valve is normal in structure. There is no pulmonic valvular regurgitation. There is no pulmonic valvular stenosis. GREAT VESSELS The aortic root is normal in size. The ascending aorta is normal in size. The IVC is normal in size and collapses >50% with inspiration. PERICARDIAL EFFUSION The pericardium appears normal. There is no pleural effusion. <Conclusion> Low Normal LV systolic function LVEF 50% Mild Concentric LVH Impaired Diastolic Relaxation
--- NOTE | 2017-10-04 16:50 | CP.PCM.DIS ---
Provider - Provider Date of Admission: 10/01/17 18:58 Attending physician: Joby Saldivar MD Diagnosis - Discharge Diagnosis (1) Chest pain Status: Acute Priority: High (2) Trauma of chest Status: Acute (3) Dehydration Status: Resolved Priority: High (4) Hyperglycemia Status: Resolved Priority: High (5) HTN (hypertension) Status: Acute Priority: High Hospital Course - Lab Results Lab Results: Micro Results 10/01/17 05:26 Naris MRSA Culture (Admit) - Final MRSA NOT DETECTED Most Recent Lab Values WBC 5.1 K/uL (4.8-10.8) 10/02/17 05:00 RBC 5.09 Mil/uL (4.40-5.90) 10/02/17 05:00 Hgb 14.5 g/dL (12.0-18.0) 10/02/17 05:00 Hct 44.1 % (35.0-51.0) 10/02/17 05:00 MCV 86.6 fl (80.0-94.0) 10/02/17 05:00 MCH 28.5 pg (27.0-31.0) 10/02/17 05:00 MCHC 33.0 g/dL (33.0-37.0) 10/02/17 05:00 RDW 14.3 % (11.5-14.5) 10/02/17 05:00 Plt Count 144 K/uL (130-400) 10/02/17 05:00 MPV 10.4 fl (7.2-11.7) 10/02/17 05:00 Neut % (Auto) 39.4 % (50.0-75.0) L 10/02/17 05:00 Lymph % (Auto) 45.5 % (20.0-40.0) H 10/02/17 05:00 [place] % (Auto) 6.6 % (0.0-10.0) 10/02/17 05:00 Eos % (Auto) 8.2 % (0.0-4.0) H 10/02/17 05:00 Baso % (Auto) 0.3 % (0.0-2.0) 10/02/17 05:00 Neut # (Auto) 2.0 K/uL (1.8-7.0) 10/02/17 05:00 Lymph # (Auto) 2.3 K/uL (1.0-4.3) 10/02/17 05:00 [place] # (Auto) 0.3 K/uL (0.0-0.8) 10/02/17 05:00 Eos # (Auto) 0.4 K/uL (0.0-0.7) 10/02/17 05:00 Baso # (Auto) 0.0 K/uL (0.0-0.2) 10/02/17 05:00 PT 10.8 Seconds (9.8-13.1) 10/01/17 14:55 INR 1.0 (0.9-1.2) 10/01/17 14:55 APTT 29.1 Seconds (25.6-37.1) 10/01/17 14:55 Sodium 139 mmol/l (132-148) 10/03/17 11:27 Potassium 4.4 MMOL/L (3.6-5.0) 10/03/17 11:27 Chloride 100 mmol/L (98-107) 10/03/17 11:27 Carbon Dioxide 27 mmol/L (22-30) 10/03/17 11:27 Anion Gap 16 (10-20) 10/03/17 11:27 BUN 19 mg/dl (9-20) 10/03/17 11:27 Creatinine 1.0 mg/dl (0.8-1.5) 10/03/17 11:27 Est GFR ( Amer) > 60 10/03/17 11:27 Est GFR (Non-Af Amer) > 60 10/03/17 11:27 POC Glucose (mg/dL) 291 mg/dL (65-110) H 10/04/17 11:14 Random Glucose 221 mg/dL (75-110) H 10/03/17 11:27 Calcium 9.0 mg/dL (8.4-10.2) 10/03/17 11:27 Magnesium 1.4 MG/DL (1.6-2.3) L 10/01/17 14:55 Total Bilirubin 0.9 mg/dl (0.2-1.3) 10/02/17 05:00 AST 18 U/L (17-59) 10/02/17 05:00 ALT 31 U/L (21-72) 10/02/17 05:00 Alkaline Phosphatase 67 U/L (38-126) 10/02/17 05:00 Troponin I 0.0210 ng/mL (0.00-0.120) 10/01/17 21:14 NT-Pro-B Natriuret Pep 112 pg/ml (0-900) 10/01/17 14:55 Total Protein 6.3 G/DL (6.3-8.2) 10/02/17 05:00 Albumin 3.2 g/dL (3.5-5.0) L 10/02/17 05:00 Globulin 3.1 gm/dL (2.2-3.9) 10/02/17 05:00 Albumin/Globulin Ratio 1.0 (1.0-2.1) 10/02/17 05:00 Lipase 94 U/L (23-300) 10/01/17 14:55 Discharge Exam - Head Exam Head Exam: NORMAL INSPECTION Discharge Plan - Follow Up Plan Condition: FAIR Disposition: HOME/ ROUTINE Instructions: Dehydration, Adult (DC), Chest Pain (DC) Additional Instructions: follow up with pmd in 1 week Referrals: Joby Saldivar MD [Staff Provider] - Jessica Raymundo MD [Staff Provider] -
== END 2017-10-04 15:00 | disposition home or self-care (01) ==
LOC: H.ER 14:09 → H.ERHOLD 18:58 → H.ICU/CCU 21:27 → OBSVTOIN 10-02 15:01 → INTOOBSV 10-02 15:01 → H.TEL 10-02 23:07
PROVIDERS: ADMIT Internal Medicine Pulmonary Disease; ATTEND Internal Medicine Pulmonary Disease
DX: R07.9 Chest pain, unspecified (principal); E86.0 Dehydration; E11.65 Type 2 diabetes mellitus with hyperglycemia; I10 Essential (primary) hypertension; H40.9 Unspecified glaucoma; Z23 Encounter for immunization; I25.10 Atherosclerotic heart disease of native coronary artery without angina pectoris; Z95.1 Presence of aortocoronary bypass graft; Z95.5 Presence of coronary angioplasty implant and graft
CPT/HCPCS: 36415; 71045; 71260; 80048; 80053; 82948; 83690; 83735; 83880; 84484; 85025; 85610; 85730; 87081; 90471; 93005; 93306; 97161; 99285; G0378; G8978; G8979; G8980; J2270; Q2035; Q9967